=== PATIENT | male | born 1975 | race Caucasian/White ===

== ENCOUNTER 2018-05-20 17:29 | Emergency (ER) | payer MEDICAID, SELFPAY ==
[2018-05-20 17:35] VITALS: BP 167/99; PULSE 87; RESP 16; TEMP 36.4; O2SAT 98
--- NOTE | 2018-05-20 17:51 | ED.GENADUL_ITS ---
Discharge Plan Disposition Patient Disposition: HOME Condition: Stable Discharge Details Chief Complaint: RespSymp Clinical Impression: Bronchitis Primary Care Provider: Dio Ornelas ED Provider: Jarrod Coleman Home Meds and New Rx's Prescriptions: New prednisone 20 mg tablet 60 mg PO DAILY 4 Days Qty: 12 RF: 0 doxycycline hyclate 100 mg tablet 100 mg PO BID Qty: 14 RF: 0 Continued levalbuterol tartrate [Xopenex HFA] 15 GM HFA aerosol inhaler 2 puff Inhalation Q4H PRNRF: 0 oxycodone 10 MG tablet 10 mg PO QPM PRN (Reason: Nausea / Vomiting) Qty: 4 RF: 0 ondansetron 4 MG tablet,disintegrating 4 mg PO Q8H PRN PRNQty: 30 RF: 0 Lantus U-100 Insulin 100 UNITS/ML solution 15 unit SQ DAILY RF: 0 metformin [Glucophage] 1,000 MG tablet 1,000 mg PO BID RF: 0 lisinopril 20 mg Tablet 20 mg PO DAILY RF: 0 glipizide 10 mg Tablet 2.5 mg PO DAILY RF: 0 fenofibrate 120 mg Tablet 145 mg PO DAILY RF: 0 Discharge Instructions Instructions: Acute Bronchitis (ED) Additional Instructions: follow up with your primary care provider within a week. You should discuss havin testing for copd at that time as well if you feel you are becoming more ill or having worsening difficulty breathing return to the emergency department for reevaluation Medical Decision Making 43 yo male who states he has a hx of asthma, smoker, who comes in with chief complaint of productive cough without fevers for about a week. Denies recent travel, chest pain, leg swelling or calf pain. HE is speaking in full setnences on exam in no distress. He has apical wheezing bilaterally otherwise clear lungs. Given lack of focal lung exam findings and no fever and well appearance do not feel cxr indicated. I suspect he may be developing copd with his smoking hx and could be having a copd exacerbation, will tx with steroids and abx. He has no findings to suggest dvt and exam findings are consistent with copd/asthma so do not feel w/u for pe indicated and given lack of chest pain, jvd or leg edema do not feel w/u for acs or chf indicated. ADvised f/u with pcp and return precautions given Differential Diagnosis bronchitis, copd,, asthma, pna HPI General Mode of arrival: ambulatory . Date/Time Provider Initiated Documentation: 05/20/18 17:31 . Limitations to Documentation: no limitations . Information obtained by: patient . History of Present Illness 43 year old M presents to the emergency department with the chief complaint of cough, described as moderate, Patient reports no radiation. Patient started experiencing this week(s) (1) and it has been constant. No relieving factors improve symptom(s), No exacerbating factors reported . Patient notes other (nausea). Patient did receive the following treatments prior to arrival, none Related Data Home Medications Medication Instructions Recorded Confirmed levalbuterol tartrate [Xopenex HFA] 2 puff INHALATION Q4H PRN 04/22/16 05/20/18 ondansetron 4 mg PO Q8H PRN PRN #30 tabef 04/22/16 05/20/18 oxycodone 10 mg PO QPM PRN #4 tab 04/22/16 05/20/18 Lantus U-100 Insulin 15 unit SQ DAILY 05/12/16 05/20/18 metformin [Glucophage] 1,000 mg PO BID 05/12/16 05/20/18 doxycycline hyclate 100 mg PO BID #14 tab 05/20/18 fenofibrate 145 mg PO DAILY 05/20/18 05/20/18 glipizide 2.5 mg PO DAILY 05/20/18 05/20/18 lisinopril 20 mg PO DAILY 05/20/18 05/20/18 prednisone 60 mg PO DAILY 4 Days #12 tab 05/20/18 Previous Rx's Medication Instructions Recorded ondansetron 4 mg PO Q8H PRN PRN #30 tabef 04/22/16 oxycodone 10 mg PO QPM PRN #4 tab 04/22/16 doxycycline hyclate 100 mg PO BID #14 tab 05/20/18 prednisone 60 mg PO DAILY 4 Days #12 tab 05/20/18 Allergies Allergy/AdvReac Type Severity Reaction Status Date / Time acamprosate calcium Allergy Intermediate Unverified 05/20/18 17:38 [From Campral] buspirone HCl [From BuSpar] Allergy Intermediate Skin Rash Unverified 05/20/18 17:38 lorazepam [From Ativan] AdvReac Severe Agitation Unverified 05/20/18 17:38 doxycycline AdvReac Intermediate Nausea Unverified 05/20/18 17:38 duloxetine HCl AdvReac Unverified 05/20/18 17:38 [From Cymbalta] General Stated Complaint: RespSymp AHMET: 4 Review of Systems Review of Systems All systems reviewed & are unremarkable except as noted in HPI and below Constitutional Denies chills, Denies fever(s) and Denies weakness ENT Denies change in voice Cardiovascular Denies chest pain Gastrointestinal Denies abdominal pain, Denies nausea and Denies vomiting Genitourinary Denies dysuria Musculoskeletal Denies joint swelling Integumentary/Breasts Denies rash Neurologic Denies weakness PFS Social History Smoking/Tobacco Use Status: Current every day Tobacco Type: cigarettes Smoking cigarettes per day: 15 Alcohol Intake: former Drug use: Daily Substance use type: does not use Do you feel safe in your relationship?: Yes Exam Const General: no acute distress Orientation: alert HENMT Head: normal to inspection Ears: external ears normal General nose exam: external nose normal Mouth: moist mucous membranes Eyes General: appearance normal, both eyes and all related structures Neck Neck: normal visual inspection Resp Effort & Inspection: normal respiratory effort and able to speak in complete sentences Cardio Rate: regular rate Skin General skin exam: no rashes or lesions noted Neuro General: alert and oriented x3 Extrem General: normal to inspection Psych Mental Status: mental status grossly normal Course Vital Signs Temperature 36.4 C L 05/20/18 17:35 Pulse 87 05/20/18 17:35 Respiratory Rate 16 05/20/18 17:35 Blood Pressure 167/99 H 05/20/18 17:35 Pulse Oximetry 98 05/20/18 17:35 Temperature 36.4 C L 05/20/18 17:35 Temperature Source Skin 05/20/18 17:35 Pulse 87 05/20/18 17:35 Respiratory Rate 16 05/20/18 17:35 Respiratory Effort 05/20/18 17:35 Blood Pressure 167/99 H 05/20/18 17:35 Blood Pressure Position Sitting 05/20/18 17:35 Pulse Oximetry 98 05/20/18 17:35 Oxygen Delivery Method Room Air 05/20/18 17:35 Oxygen Flow Rate 0 05/20/18 17:35 Pain Level 4 05/20/18 17:35
[2018-05-20] MEDS: Doxycycline Hyclate 100 MG CAP PO (18:09)
[2018-05-20] MEDS: predniSONE 20 MG TAB 60 MG PO (18:09)
[2018-05-20] MEDS: Albuterol HFA 8 GM 60 PUFF INH IH (18:09)
[2018-05-20] MEDS: Inhaler, Assist Device 1 EACH MC (18:10)
== END 2018-05-20 18:05 | disposition home or self-care (01) ==
LOC: ER 18:21
PROVIDERS: Emergency Provider Emergency Medicine; PCP Family Medicine
DX: J40 Bronchitis, not specified as acute or chronic (principal)
CPT/HCPCS: 99283; J7512

== ENCOUNTER 2018-05-22 08:40 | Emergency (ER) | payer MEDICAID, SELFPAY ==
[2018-05-22] VITALS (12 sets, daily range): BP systolic 132–164; BP diastolic 85–101; PULSE 66–104; RESP 18; TEMP 36.3; O2SAT 91–99
--- NOTE | 2018-05-22 09:02 | ED.GENADUL_ITS ---
Discharge Plan Disposition Patient Disposition: HOME Condition: Stable Discharge Details Chief Complaint: Diabetes Clinical Impression: Hyperglycemia, Bronchitis, Noncompliance with medication regimen, Medication refill Primary Care Provider: Dio Ornelas ED Provider: Maria A Reyes Home Meds and New Rx's Prescriptions: New lisinopril 20 mg tablet 20 mg PO DAILY Qty: 30 RF: 0 lancets [Accu-Chek Multiclix Lancet] misc .ROUTE .MEDSUPPLY Qty: 50 RF: 0 Accu-Chek Compact Plus Test strip .ROUTE .MEDSUPPLY Qty: 51 RF: 0 Continued levalbuterol tartrate [Xopenex HFA] 15 GM HFA aerosol inhaler 2 puff Inhalation Q4H PRNRF: 0 metformin [Glucophage] 1,000 MG tablet 1,000 mg PO BID RF: 0 lisinopril 20 mg Tablet 20 mg PO DAILY RF: 0 glipizide 10 mg Tablet 2.5 mg PO DAILY RF: 0 fenofibrate 120 mg Tablet 145 mg PO DAILY RF: 0 prednisone 20 mg tablet 60 mg PO DAILY 4 Days Qty: 12 RF: 0 doxycycline hyclate 100 mg tablet 100 mg PO BID Qty: 14 RF: 0 buprenorphine-naloxone [Suboxone] 2-0.5 mg Film DAILY RF: 0 buprenorphine-naloxone [Suboxone] 12-3 mg Film 1 DAILY RF: 0 Discharge Instructions Instructions: Acute Bronchitis (ED), Diabetic Hyperglycemia (ED) Additional Instructions: Take your regular medications as directed and prescribed. Check your sugar regularly. Drink plenty of fluids and get plenty of rest. Take your steroids and doxycycline until finished. Follow-up with your appointment with your primary care doctor tomorrow. Return immediately to the emergency department any worsening or new concerning symptoms. Stand Alone Forms: Work Release Discharge Data Discharge Physician: Maria A Reyes Medical Decision Making 43-year-old male with a history of hypertension, hyperlipidemia, asthma, pancreatitis, diabetes, depression, GERD, obstructive sleep apnea and former alcohol and prescription opiate abuse who presents with fatigue and urinary frequency over the past week, and hyperglycemia over the past few days. He was diagnosed with bronchitis and has taken prednisone over the past 2 days. He has also missed a few doses of his glipizide. His glucose on arrival was 347. Normal ENT exam. He has diffuse rhonchi and minimal wheezing throughout exam. Abdomen soft and nontender. Discussed with patient that his symptoms can be likely due to him missing his glipizide in addition to the steroids. Will place an IV, bolus IV fluids, labs, EKG, chest x-ray and urinalysis, and a neb treatment. EKG notes a rate of 68, sinus and no acute ST findings. Labs reviewed and note a normal white blood cell count, electrolytes. Glucose 327, normal bicarb and anion gap. Troponin negative. Lipase negative. Urinalysis negative for infection. Chest x-ray unremarkable. Will continue IV fluids and give 5 units of regular insulin. Will observe and recheck a blood sugar. 1215-- recheck glucose 148. Patient is feeling much better and was requesting to go home. He is requesting a prescription for lisinopril, lancets and testing strips. He has an appointment with his primary care doctor tomorrow. He is instructed to increase his fluids, check his sugar regularly and take his diabetes medications as directed. He is instructed to finish his prednisone and doxycyline for his bronchitis. He has an albuterol inhaler at home. Patient is instructed to return immediately to the emergency department any worsening or new concerning symptoms. Medical Records Medical records reviewed: Yes I reviewed the patient's medical records. Imaging Data Radiologic Study: Radiologist's impression: PA AND LATERAL CHEST: The heart is normal in size. The lungs are clear. The mediastinal structures and pleura appear intact. CONCLUSION: Normal chest. Lab Data Lab results reviewed: Yes I reviewed the patient's lab results. Laboratory Tests Range/Units 05/22/18 05/22/18 05/22/18 09:00 09:00 09:00 WBC (4.4-10.8) k/cumm 9.40 RBC (4.50-6.00) m/cumm 4.92 Hgb (13.5-17.5) g/dL 14.8 Hct (40.0-50.0) % 41.8 MCV (80-95) fL 85.0 MCH (27.0-33.0) pg 30.1 MCHC (32.0-36.0) g/dL 35.4 RDW (11.8-14.1) % 12.5 Plt Count (130-400) x1000/uL 196 MPV (8.0-11.0) fL 11.1 H Immature Gran % 0.3 Neutrophils % 71.9 Lymphocytes % 19.9 Monocytes % 7.6 Eosinophils % 0.1 Basophils % 0.2 Absolute Neutrophils (1.2-6.7) k/cumm 6.76 H Absolute Lymphocytes (1.2-3.4) k/cumm 1.87 Absolute Monocytes (0.11-0.7) k/cumm 0.71 H Absolute Eosinophils (0.0-0.7) k/cumm 0.01 Absolute Basophils (0.0-0.2) k/cumm 0.02 Sodium (136-145) mmol/L 136 Potassium (3.5-5.1) mmol/L 3.6 Chloride (98-107) mmol/L 95 L Carbon Dioxide (21.0-32.0) mmol/L 30.1 Anion Gap (3-11) mmol/L 10.9 BUN (7-18) mg/dL 28 H Creatinine (0.70-1.30) mg/dL 1.36 H Estimated GFR/1.73 m2 (mL/min/1.73m2) 57.47 Glucose (70-100) mg/dL 327 H Calcium (8.5-10.1) mg/dL 9.8 Total Bilirubin (0.2-1.0) mg/dL 0.3 AST (15-37) U/L 15 ALT (12-78) U/L 47 Alkaline Phosphatase (46-116) U/L 104 Troponin I (0.00-0.06) ng/mL 0.02 Total Protein (6.4-8.2) g/dL 8.6 H Albumin (3.4-5.0) g/dL 4.4 Lipase (73-393) U/L 177 Urine Color (Yellow) Urine Clarity Urine pH (5-8) Ur Specific [place] (1.005-1.025) Urine Protein (Negative) mg/dL Urine Ketones (Negative) mg/dL Urine Blood (Negative) Urine Nitrite (Negative) Urine Bilirubin (Negative) Urine Urobilinogen (Up TO 0.2) EU/dL Ur Leukocyte Esterase (Negative) Urine RBC (0-2) Urine WBC (0-5) HPF Ur Epithelial Cells (Negative) HPF Urine Crystals (Negative) HPF Urine Bacteria (Negative) HPF Urine Casts (Negative) LPF Urine Mucus (Negative) Ur Culture Indicated? Urine Glucose (Negative) mg/dL Range/Units 05/22/18 10:14 WBC (4.4-10.8) k/cumm RBC (4.50-6.00) m/cumm Hgb (13.5-17.5) g/dL Hct (40.0-50.0) % MCV (80-95) fL MCH (27.0-33.0) pg MCHC (32.0-36.0) g/dL RDW (11.8-14.1) % Plt Count (130-400) x1000/uL MPV (8.0-11.0) fL Immature Gran % Neutrophils % Lymphocytes % Monocytes % Eosinophils % Basophils % Absolute Neutrophils (1.2-6.7) k/cumm Absolute Lymphocytes (1.2-3.4) k/cumm Absolute Monocytes (0.11-0.7) k/cumm Absolute Eosinophils (0.0-0.7) k/cumm Absolute Basophils (0.0-0.2) k/cumm Sodium (136-145) mmol/L Potassium (3.5-5.1) mmol/L Chloride (98-107) mmol/L Carbon Dioxide (21.0-32.0) mmol/L Anion Gap (3-11) mmol/L BUN (7-18) mg/dL Creatinine (0.70-1.30) mg/dL Estimated GFR/1.73 m2 (mL/min/1.73m2) Glucose (70-100) mg/dL Calcium (8.5-10.1) mg/dL Total Bilirubin (0.2-1.0) mg/dL AST (15-37) U/L ALT (12-78) U/L Alkaline Phosphatase (46-116) U/L Troponin I (0.00-0.06) ng/mL Total Protein (6.4-8.2) g/dL Albumin (3.4-5.0) g/dL Lipase (73-393) U/L Urine Color (Yellow) Yellow Urine Clarity Clear Urine pH (5-8) 6.5 Ur Specific [place] (1.005-1.025) 1.020 Urine Protein (Negative) mg/dL Trace H Urine Ketones (Negative) mg/dL Negative Urine Blood (Negative) Trace-intact H Urine Nitrite (Negative) Negative Urine Bilirubin (Negative) Negative Urine Urobilinogen (Up TO 0.2) EU/dL 0.2 Ur Leukocyte Esterase (Negative) Negative Urine RBC (0-2) 3-5 H Urine WBC (0-5) HPF 0-2 Ur Epithelial Cells (Negative) HPF Few Urine Crystals (Negative) HPF Negative Urine Bacteria (Negative) HPF Rare Urine Casts (Negative) LPF 0-2 hyaline Urine Mucus (Negative) Negative Ur Culture Indicated? No Urine Glucose (Negative) mg/dL >=1000 H ECG Data Attestation: I personally reviewed and interpreted this ECG (s) as follows: Interpretation: rate of 68, sinus, T wave inversion lead III, no acute ST elevation or depression. QTc 374, QRS 80. HPI General Mode of arrival: ambulatory . Date/Time Provider Initiated Documentation: 05/22/18 08:58 . Limitations to Documentation: no limitations . Information obtained by: patient . HPI Narrative: Patient is a 43-year-old male with a history of hypertension, hyperlipidemia, asthma, pancreatitis, diabetes, depression, GERD, obstructive sleep apnea and former alcohol abuse who presents with hyperglycemia. Patient states he had not been feeling well for the past 2 weeks with nausea, intermittent vomiting and diarrhea, which he thought was the flu. Patient states he then developed URI symptoms with cough, chest congestion, and intermittent shortness of breath. Patient was seen here 2 days ago and diagnosed with bronchitis and sent home with prednisone and doxycycline. He states he has taken 2 doses of his prednisone since then. He states he has been generally feeling fatigued with increase in urination and frequency over the past week. He checked his sugar twice over the past few days and it was in the 500s. Patient called his PCP this morning and she advised him to come to the emergency department. He does state that he has missed a few doses of his glipizide this week. He has been taking his metformin. He denies any fever, abdominal pain, chest pain, dysuria or hematuria. Related Data Home Medications Medication Instructions Recorded Confirmed levalbuterol tartrate [Xopenex HFA] 2 puff INHALATION Q4H PRN 04/22/16 05/20/18 metformin [Glucophage] 1,000 mg PO BID 05/12/16 05/20/18 buprenorphine-naloxone [Suboxone] 1 DAILY 05/20/18 buprenorphine-naloxone [Suboxone] DAILY 05/20/18 doxycycline hyclate 100 mg PO BID #14 tab 05/20/18 fenofibrate 145 mg PO DAILY 05/20/18 05/20/18 glipizide 2.5 mg PO DAILY 05/20/18 05/20/18 lisinopril 20 mg PO DAILY 05/20/18 05/20/18 prednisone 60 mg PO DAILY 4 Days #12 tab 05/20/18 blood sugar diagnostic, drum #51 each 05/22/18 [Accu-Chek Compact Plus Test] lancets [Accu-Chek Multiclix #50 each 05/22/18 Lancet] lisinopril 20 mg PO DAILY #30 tab 05/22/18 Previous Rx's Medication Instructions Recorded doxycycline hyclate 100 mg PO BID #14 tab 05/20/18 prednisone 60 mg PO DAILY 4 Days #12 tab 05/20/18 blood sugar diagnostic, drum #51 each 05/22/18 [Accu-Chek Compact Plus Test] lancets [Accu-Chek Multiclix #50 each 05/22/18 Lancet] lisinopril 20 mg PO DAILY #30 tab 05/22/18 Allergies Allergy/AdvReac Type Severity Reaction Status Date / Time acamprosate calcium Allergy Intermediate Unverified 05/20/18 17:38 [From Campral] buspirone HCl [From BuSpar] Allergy Intermediate Skin Rash Unverified 05/20/18 17:38 lorazepam [From Ativan] AdvReac Severe Agitation Unverified 05/20/18 17:38 doxycycline AdvReac Intermediate Nausea Unverified 05/20/18 17:38 duloxetine HCl AdvReac Unverified 05/20/18 17:38 [From Cymbalta] General Stated Complaint: Diabetes AHMET: 3 Review of Systems Review of Systems All systems reviewed & are unremarkable except as noted in HPI and below Constitutional Reports as per HPI, Denies chills and Denies fever(s) Eyes Denies blurry vision ENT Denies dizziness, Denies sore throat and Denies throat swelling Cardiovascular Reports chest pain and Reports dyspnea Respiratory Reports cough and Reports dyspnea Gastrointestinal Denies abdominal pain, Denies diarrhea, Reports nausea and Denies vomiting Genitourinary Denies hematuria and Denies dysuria Musculoskeletal Denies back pain and Denies numbness Integumentary/Breasts Denies lesions and Denies rash Neurologic Denies dizziness, Denies focal weakness and Denies numbness Allergic/Immunologic Denies throat swelling [facility] Medical History Hyperlipemia (Acute) Asthma (Chronic) Depression (Chronic) Diabetes (Chronic) GERD (gastroesophageal reflux disease) (Chronic) HTN (hypertension) (Chronic) Obstructive sleep apnea (Chronic) Pancreatitis (Chronic) Surgical History History of circumcision (Acute) History of ear surgery (Acute) Pancreatic pseudocyst (Acute) Social History Smoking/Tobacco Use Status: Current every day Tobacco Type: cigarettes Alcohol Intake: former Drug use: Never Substance use type: former substance user, opiates and painkillers Do you feel safe at home: Yes Do you feel safe in your relationship?: Yes Exam Const General: cooperative and healthy appearing Orientation: alert and awake HENMT Head: normal to inspection Ears: hearing grossly normal bilaterally, external ears normal and TM's normal bilaterally General nose exam: external nose normal Face and sinus: normal facial exam Mouth: oral mucosae normal Teeth and gingiva: dentition normal Throat: posterior oropharynx normal Eyes General: appearance normal, both eyes and all related structures Eyelids: eyelids normal EOM: EOM intact bilaterally Neck Neck: normal visual inspection Lymphatic: no lymphadenopathy noted Chest Chest: normal inspection of the chest Resp Effort & Inspection: normal respiratory effort and able to speak in complete sentences Auscultation: rhonchi and wheezes Cardio Rate: regular rate Rhythm: regular rhythm GI Inspection: normal to inspection Palpation: soft, not firm, no guarding, no hepatosplenomegaly, no masses and nontender Auscultation: normal bowel sounds Skin General skin exam: no rashes or lesions noted Neuro General: alert and awake Cognition: normal cognition Speech: speech normal Gait: normal gait Motor: muscle tone normal throughout Sensory Exam: no sensory deficits noted Extrem General: normal to inspection, full ROM, normal capillary refill and no edema Psych Appearance: grossly normal Mental Status: mental status grossly normal Speech and Movement: speech and movement normal Affect: normal affect Thought Process: normal Course Vital Signs Temperature 97.3 F L 05/22/18 08:42 Pulse 104 H 03/26/19 08:42 Respiratory Rate 18 05/22/18 08:42 Blood Pressure 164/101 H 05/22/18 08:42 Pulse Oximetry 99 05/22/18 08:42 Temperature 97.3 F L 05/22/18 08:42 Temperature Source Temporal Artery Scan 05/22/18 08:42 Pulse 104 H 05/22/18 08:42 Respiratory Rate 18 05/22/18 08:42 Respiratory Effort Non-Labored 05/22/18 08:46 Blood Pressure 164/101 H 05/22/18 08:42 Pulse Oximetry 99 05/22/18 08:42 Oxygen Delivery Method Room Air 05/22/18 08:42 Oxygen Flow Rate 0 05/22/18 08:42 Pain Level 0 05/22/18 08:42 Comment 05/22/18 08:42
[2018-05-22 09:12] LABS: Abs Immature Grans 0.03 k/cumm (0.0-0.09); Absolute Basophil Count 0.02 k/cumm (0.0-0.2); Absolute Eosinophil Count 0.01 k/cumm (0.0-0.7); Absolute Lymphocyte Count 1.87 k/cumm (1.2-3.4); Absolute Monocyte Count 0.71 k/cumm (0.11-0.7); Absolute Neutrophil Count 6.76 k/cumm (1.2-6.7); Basophils % 0.2; Eosinophils % 0.1; HCT 41.8 % (40.0-50.0); HGB 14.8 g/dL (13.5-17.5); Immature Grans % 0.3; Lymphocytes % 19.9; Mean Corp. HGB Concentration 35.4 g/dL (32.0-36.0); Mean Corpuscular Hemoglobin 30.1 pg (27.0-33.0); Mean Platelet Volume 11.1 fL (8.0-11.0); Monocytes % 7.6; Neutrophils % 71.9; Platelet Count 196 x1000/uL (130-400); RBC 4.92 m/cumm (4.50-6.00); RBC Distribution Width 12.5 % (11.8-14.1)
[2018-05-22 09:25] LABS: ALT 47 U/L (12-78); AST 15 U/L (15-37); Albumin 4.4 g/dL (3.4-5.0); Alkaline Phosphatase 104 U/L (46-116); Anion Gap 10.9 mmol/L (3-11); BUN 28 mg/dL (7-18); Bilirubin, Total 0.3 mg/dL (0.2-1.0); CO2 30.1 mmol/L (21.0-32.0); CREATININE 1.36 mg/dL (0.70-1.30); Calcium 9.8 mg/dL (8.5-10.1); Chloride 95 mmol/L (98-107); Estimated GFR 57.47 (mL/min/1.73m2); Glucose 327 mg/dL (70-100); Potassium 3.6 mmol/L (3.5-5.1); Sodium 136 mmol/L (136-145); Total Protein 8.6 g/dL (6.4-8.2)
--- NOTE | 2018-05-22 09:34 | DI.RAD_ITS ---
SYMPTOMS/DIAGNOSIS: CHEST TIGHTNESS, COUGH, SOB, ? ACUTE DISEASE PA AND LATERAL CHEST: The heart is normal in size. The lungs are clear. The mediastinal structures and pleura appear intact. CONCLUSION: Normal chest.
[2018-05-22] MEDS: Normal Saline 1,000 ML 1000 ML IV (09:41)
[2018-05-22] MEDS: Albuterol/Ipratropium 3 ML UPD VIAL UPD (10:09)
--- NOTE | 2018-05-22 10:14 | NUR.NOTE ---
Nursing Note: urine sent. neb tx given. will continue to monitor.
[2018-05-22 10:18] LABS: Bilirubin Negative (Negative); Blood Trace-intact (Negative); Clarity Clear; Glucose >=1000 mg/dL (Negative); Ketones Negative (Negative); Leukocyte Esterase Negative (Negative); Nitrite Negative (Negative); Urobilinogen 0.2 EU/dL (Up TO 0.2); pH 6.5 (5-8)
[2018-05-22] MEDS: Insulin REGULAR-Human 100 UNITS/ML UNIT IV (10:27)
[2018-05-22 10:33] LABS: Bacteria Rare HPF (Negative); C & S Indicated? No; Casts 0-2 Hyaline LPF (Negative); Crystals Negative HPF (Negative); Epithelial Cells Few HPF (Negative); Mucus Negative (Negative); WBC 0-2 HPF (0-5)
[2018-05-22 11:00] LABS: Lipase 177 U/L (73-393); Troponin I 0.02 ng/mL (0.00-0.06)
== END 2018-05-22 12:29 | disposition home or self-care (01) ==
PROVIDERS: Emergency Provider Physician Assistant; PCP Family Medicine
DX: E11.65 Type 2 diabetes mellitus with hyperglycemia (principal); J20.9 Acute bronchitis, unspecified; Z91.14 Patient's other noncompliance with medication regimen; I10 Essential (primary) hypertension; Z79.84 Long term (current) use of oral hypoglycemic drugs; E11.9 Type 2 diabetes mellitus without complications
CPT/HCPCS: 36416; 80053; 82962; 83690; 93005; 96361; 96374; 99285; 71046; 81003; 81015; 84484; 85025; 93010; J7620

== ENCOUNTER 2018-11-27 00:41 | Outpatient (CLI) | payer OTHER, SELFPAY ==
--- NOTE | 2018-11-27 13:48 | DI.MRI_ITS ---
EXAM: MR UPPER JOINT RT WO CLINICAL HISTORY: R shoulder pain s/p injury. ?SLAP, biceps tear. TECHNIQUE: Multiplanar multisequence MRI was performed. COMPARISON: None. FINDINGS: Bones: There is no fracture or contusion pattern. There are hypertrophic changes seen at the acromioclavicul ar joint. No subacromial, subcoracoid or glenohumeral joint effusion is present. Rotator Cuff: The supra and infraspinatus are intact. The subscapularis and teres minor are normal. Labrum and biceps anchor: The biceps tendon is normally located. The anchor is well maintained. There is hyperintense signal s een in the superior labrum. It does not appear to extend to the biceps tendon. The finding is consi stent with a SLAP type 2 tear. IMPRESSION: Findings consistent with a SLAP type 2 labral tear.
== END 2018-11-27 01:01 ==
PROVIDERS: PCP Family Medicine; Visit Provider Student in an Organized Health Care Education/Training Program
DX: M25.511 Pain in right shoulder (principal); S43.431A Superior glenoid labrum lesion of right shoulder, initial encounter
CPT/HCPCS: 73221

== ENCOUNTER 2018-12-25 09:53 | Day surgery (SDC) | payer OTHER, SELFPAY ==
[2018-12-25] VITALS (7 sets, daily range): BP systolic 110–144; BP diastolic 64–96; PULSE 62–72; RESP 12–18; TEMP 36.4–36.6; O2SAT 95–99
[2018-12-25] MEDS: Lactated Ringers 1,000 ML 80 ML IV (10:55)
[2018-12-25] MEDS: Bupivacaine LIPOSOME/PF 133 MG/10 ML VIAL IJ (11:12)
[2018-12-25] MEDS: Bupivacaine 0.5% Pres-Free 30 ML VIAL (11:12)
[2018-12-25] MEDS: ceFAZolin 2 GM/50 ML BAG IVPB (11:39)
--- NOTE | 2018-12-25 11:43 | W.PM.DSUDISC ---
Discharge Plan Disposition Patient Disposition: HOME Condition: Good Discharge Details Reason For Visit: R distal clavicle excision, R biceps tenodesis Attending Provider: Nikita Gibbs Primary Care Provider: Dio Ornelas [place] Meds and New Rx's Prescriptions: New acetaminophen 500 mg tablet 1,000 mg PO Q8H PRN (Reason: pain) Qty: 60 RF: 3 ibuprofen 600 mg tablet 600 mg PO TID PRNQty: 60 RF: 3 oxycodone 10 mg tablet 10 mg PO Q6H MDD 40mg PRN (Reason: pain) Qty: 12 RF: 0 Continued Farxiga 5 mg tablet 5 mg PO DAILY RF: 0 diclofenac epolamine 1.3 % patch 12 hour 1 patch TD Q12H Qty: 15 RF: 0 levalbuterol tartrate [Xopenex HFA] 15 GM HFA aerosol inhaler 2 puff Inhalation Q4H PRNRF: 0 lisinopril 20 mg tablet 20 mg PO DAILY Qty: 30 RF: 0 (DME) lancets [Accu-Chek Multiclix Lancet] misc See Dose Instructions .ROUTE .MEDSUPPLY Qty: 50 RF: 0 (DME) Accu-Chek Compact Plus Test strip See Dose Instructions .ROUTE .MEDSUPPLY Qty: 51 RF: 0 Lantus Solostar U-100 Insulin 100 unit/mL (3 mL) Insulin Pen 33 unit SUBCUT DAILY RF: 0 metformin [Glucophage] 1,000 MG tablet 1,000 mg PO BID RF: 0 fenofibrate 120 mg Tablet 145 mg PO DAILY RF: 0 buprenorphine-naloxone [Suboxone] 2-0.5 mg Film sublingual DAILY RF: 0 buprenorphine-naloxone [Suboxone] 12-3 mg Film 1 film sublingual DAILY RF: 0 Discharge Instructions Stand Alone Forms: Bernie Aquino w/BT Referrals: Nikita Gibbs MD [ [facility] STAFF PHYSICIAN] - Equipment/Supplies: Sling Activity:: Light activity as tolerated Remove Dressings/Wound Care:: 72 hours Shower/Bathe:: 72 hours Diet:: As Tolerated Discharge Orders Discharge Orders: Discharge Order (Routine); Ordered 12/25/18 Ordered By: Nikita Gibbs DS: Diagnosis Discharge Diagnosis (1) Superior labrum [id number] (SLAP) tear of right shoulder: Status: Acute (2) Sprain of right acromioclavicular joint: Status: Acute
[2018-12-25] MEDS: Bupivacaine 0.25% Pres-Free 30 ML VIAL (12:40)
[2018-12-25] MEDS: Ketorolac 15 MG/ML VIAL IVP (13:32)
[2018-12-25] MEDS: oxyCODONE 5 MG TAB PO (14:25)
--- NOTE | 2018-12-26 06:00 | ROE_ITS ---
Date of service: 12/25/18 Time of Service: 13:00 Operative Note Operative Note DATE OF PROCEDURE: 12/25/18 PRE-OP DIAGNOSIS: Right AC arthrosis, right SLAP tear POST-OP DIAGNOSIS: same PROCEDURE: - Mini-Open Distal Clavicle Excision - Debridement of anterior and superior labrum - Sub-pectoral biceps tenodesis SURGEON: Nikita Gibbs SENIOR ASSISTANT MANAGER: Daniel Gray ANESTHESIA: GETA and regional (Interscalene) ESTIMATED BLOOD LOSS: 0 PATHOLOGY: none sent COMPLICATIONS: None Patient was transported to: PACU Patient's condition: stable Indications: Vinay in clinic for a painful shoulder. Pathology was confirmed based on MRI and exam findings. Nonoperative measures were exhausted but disability and pain persisted. I discussed shoulder arthroscopy and procedures. I reviewed the risks of the procedures to include, but not limited to, bleeding, infection, pain, stiffness, damage to nerves or vessels, recurrence, hardware failure, blood clot. Despite these risks, the patient elected to proceed. Findings: There were signs of arthrosis of the distal clavicle; a 1cm wedge was resected A diagnostic arthroscopy was performed with the following findings: Articular Side - Glenohumeral Joint: One area of focal cartilage damage with a small flap, approximate 2 mm - Labrum: Type II SLAP tear with partial biceps tearing at the anchor - Cuff: Intact cuff - Biceps: Fraying at the anchor Procedure Description: Vinay was greeted in the preoperative holding area where the correct side was identified and marked. The consent was reviewed with the patient and signed. The history and physical was updated. All questions were answered. Vinay was taken back to the PACU for administration of an intrascalene nerve block. He was then taken to the operating room. The patient was placed into the supine position on the operating room table. A general anesthetic was administered. He was then positioned in the beach chair position. All bony prominences were well padded. The head was placed in a foam insulation board head saw operator in a neutral position. Prophylactic antibiotics in the form of cefazolin were administered. The right arm/shoulder was then prepped with Chloraprep and draped in a standard fashion with stockinette and shoulder drape. A timeout to confirm correct identity, side and site, procedure, allergies, anesthesia, and medical concerns was performed. The arm was placed into a pneumatic davey, SPIDER2. The distal clavicle was approached through a 2 centimeter incision within Kellen's lines. This was made overlying the AC joint. The skin was incised sharply. The deeper tissues dissected with electrocautery. The clavipectoral fascia was identified and incised longitudinally off of the distal clavicle and onto the acromion. This was reflected subperiosteally to expose the distal clavicle and the AC joint. With adequate exposure a 1 cm bony resection was made using an oscillating saw. This is angled posteriorly to avoid any posterior impingement. Once it was fully resected, it was inspected to make sure it is of adequate width. A rasp was used to smooth the bony edges inferiorly and posteriorly primarily. A small amount of bone wax was placed on the end of the distal clavicle. The wound was thoroughly irrigated. There is no active bleeding. The clavipectoral fascia was then closed with a 0 Vicryl in a watertight fashion. The subcutaneous tissues were then reapproximated with a 2-0 Vicryl. The shoulder arthroscopy was then performed. The glenohumeral joint was injected with 20 cc of normal saline with good flow back. A standard posterior portal was made and the joint was entered atraumatically with a blunt arthroscope. Once inside we had good visualization of the structures of the glenohumeral joint. An anterior portal was established with spinal needle localization. A 6.5 mm cannula was inserted. A probe was then used to perform a diagnostic arthroscopy. There is noted to be a small area of focal cartilage damage of the glenoid, measuring about 2 mm with a small flap. The labrum was was detached superiorly and frayed anteriorly. The anchor was involved. There were no loose bodies in the inferior pouch. The superior rotator cuff was attached to the tuberosity. The biceps tendon had some partial tearing and fraying at the level of the anchor. The subscapularis was intact. Using electrocautery performed a biceps tenotomy for later tenodesis. I used a shaver to debride the labrum anteriorly and superiorly from 11-3 o'clock. This allowed me to contour the labrum back down. I used the shaver to also roughen up the superior glenoid for possible healing of the labrum down onto the glenoid. I use electrocautery for any contouring. No rotator cuff debridement was needed. The biceps tenodesis was then performed. With the arm and some slight external rotation abduction pectoralis major tendon was identified. A 2 cm incision was made overlying the insertion to the humerus. Sharp dissection was carried onto the skin. Blunt dissection was carried down to the fascia the biceps musculature. This was entered with a tenotomy scissors. The biceps groove was palpable and the biceps tendon was palpable. It was withdrawn from the wound using Allis clamp and finger dissection. Once the biceps tendon was out of the arm the biceps groove was prepared using a rasp. A Mitek Lupine anchor was inserted into the biceps groove at the level of the pectoralis major insertion. This was tested to make sure had excellent fixation into the bone. Using a free needle I then placed a locking Krak?w stitch and each side of the biceps tendon using one limb from each suture at the level of the muscular tendinous junction and moving proximally. Excess tendon was then cut. Using the free suture limb I then shuttled the tendon down to the prepared surface of the humerus. It laid flat against the humerus. It was at the level of the pectoralis major tendon. The suture limbs were then tied. The wound was irrigated. The subcutaneous tissue was reapproximated with a 2-0 Vicryl followed by 4-0 Monocryl. The portal sites were closed with 3-0 Monocryl. The wounds were dressed with Steri-Strips, 4 x 4's, ABDs, Medipore tape. A sling was applied. The patient tolerated the procedure well and was returned to the PACU in a stable condition suffering no known complication.
== END 2018-12-25 15:45 | disposition home or self-care (01) ==
PROVIDERS: PCP Family Medicine; Visit Provider Student in an Organized Health Care Education/Training Program
PROC: (CPT 23120; principal; 2018-12-25 12:00)
PROC: (CPT 23430; 2018-12-25 12:00)
DX: S43.431A Superior glenoid labrum lesion of right shoulder, initial encounter (principal); M19.011 Primary osteoarthritis, right shoulder; M75.21 Bicipital tendinitis, right shoulder; X58.XXXA Exposure to other specified factors, initial encounter; G89.18 Other acute postprocedural pain; K21.9 Gastro-esophageal reflux disease without esophagitis; E11.9 Type 2 diabetes mellitus without complications; I10 Essential (primary) hypertension; G47.33 Obstructive sleep apnea (adult) (pediatric); Y99.0 Civilian activity done for income or pay
CPT/HCPCS: 23430; 23120; 29822; J0690; J1100; J1885; J2405; L3670

== ENCOUNTER 2019-01-17 13:42 | Emergency (ER) | payer OTHER, MEDICAID, SELFPAY ==
[2019-01-17 13:49] VITALS: BP 134/88; PULSE 96; RESP 16; TEMP 36.4; O2SAT 95
--- NOTE | 2019-01-17 13:58 | DI.CT_ITS ---
EXAM: CT RENAL COLIC WO CLINICAL HISTORY: right flank pain TECHNIQUE: Imaging Protocol: Axial computed tomography images with coronal and sagittal reformatted images were created and reviewed. CONTRAST MATERIAL: Intravenous: Omnipaque 350 Contrast volume:0 mL contrast route:IV - Oral: No COMPARISON: ABD PELVIS WITH CONTRAST from 05/12/2016 FINDINGS: ABDOMEN: Lung Bases: Normal where visualized. Liver: There is moderate diffuse fatty infiltration of the liver. No measurable mass. Gallbladder and biliary tract: Cholelithiasis. No biliary ductal dilatation. Pancreas: Normal density, no abnormal calcifications or inflammatory process. Spleen: Normal. Kidneys: Normal size, contour and axis. No radiodense stones or obstructive uropathy. No masses seen. Adrenal glands: No masses seen. Abdominal Aorta: Abdominal portion non-dilated. PELVIS: Bladder: Symmetric distention, no gross wall thickening. Bowel: There are scattered diverticula seen within colon with no evidence of diverticulitis or enhanc ing abscess. The appendix is normal in size without evidence of adjacent mesenteric fat stranding or adjacent fluid collection. Peritoneal cavity: No ascites, collection or mesenteric inflammatory response. Bones: Within normal limits. IMPRESSION: 1. No evidence of nephrolithiasis or obstructive uropathy. 2. Cholelithiasis. No evidence of biliary ductal dilatation. 3. Hepatic steatosis. 4. Colonic diverticulosis but no evidence of acute diverticulitis. 5. Normal retrocecal appendix. The findings were discussed with the Emergency Department on the date of the examination. DATA REPOSITORY: All CT scans at this facility are submitted to the National Radiology Data Registry (NRDR) Dose Index Registry (DIR) with the [employer] ([employer]). RADIATION OPTIMIZATION: All CT scans at this facility use at least one of these dose optimization te chniques: automated exposure control; mA and/or kV adjustment per patient size (includes targeted exa ms where dose is matched to clinical indication); or iterative reconstruction.
--- NOTE | 2019-01-17 14:05 | W.ED.GENAD ---
Discharge Plan Disposition Patient Disposition: HOME Condition: Stable Discharge Details Chief Complaint: Urinary Clinical Impression: Urinary tract infection Primary Care Provider: Dio Ornelas ED Provider: Jarrod Coleman Home Meds and New Rx's Prescriptions: New levofloxacin 750 mg tablet 750 mg PO DAILY Qty: 7 RF: 0 Continued Farxiga 5 mg tablet 5 mg PO DAILY RF: 0 diclofenac epolamine 1.3 % patch 12 hour 1 patch TD Q12H Qty: 15 RF: 0 levalbuterol tartrate [Xopenex HFA] 15 GM HFA aerosol inhaler 2 puff Inhalation Q4H PRNRF: 0 lisinopril 20 mg tablet 20 mg PO DAILY Qty: 30 RF: 0 (DME) lancets [Accu-Chek Multiclix Lancet] misc See Dose Instructions .ROUTE .MEDSUPPLY Qty: 50 RF: 0 (DME) Accu-Chek Compact Plus Test strip See Dose Instructions .ROUTE .MEDSUPPLY Qty: 51 RF: 0 Lantus Solostar U-100 Insulin 100 unit/mL (3 mL) Insulin Pen 33 unit SUBCUT DAILY RF: 0 acetaminophen 500 mg tablet 1,000 mg PO Q8H PRN (Reason: pain) Qty: 60 RF: 3 ibuprofen 600 mg tablet 600 mg PO TID PRNQty: 60 RF: 3 oxycodone 10 mg tablet 10 mg PO Q6H MDD 40mg PRN (Reason: pain) Qty: 12 RF: 0 metformin [Glucophage] 1,000 MG tablet 1,000 mg PO BID RF: 0 fenofibrate 120 mg Tablet 145 mg PO DAILY RF: 0 buprenorphine-naloxone [Suboxone] 2-0.5 mg Film sublingual DAILY RF: 0 buprenorphine-naloxone [Suboxone] 12-3 mg Film 1 film sublingual DAILY RF: 0 Discharge Instructions Instructions: Urinary Tract Infection in Men (ED) Additional Instructions: follow up with your primary care provider within 1 week if you have high fevers, severe worsening pain or feel more ill return to the emergency department Medical Decision Making 43 yo male with hx of T2DM, gerd, depression, htn, comes in with burning sensatino when he urinates since last night and some right lower back pain. Denies fevers, states last night his stomach ached but has no abd pain now. Denies vomit, denies std and has no concern for this and denies any discharge. no testicle pain or swelling. Has pain in right lower back with no saddle anesthesia on exam and normal reflexes. Will obtain ua to eval for uti vs prostatitis and also obtian CT to eval for kidney stone. No findings on hx or exam to suggest process such as sea or cauda equina labs show mild elevation of his lfts that he has had in the past and lipase. Has no upper abdominal pain on exam. CT shows no acute findings. UA concerning for uti suspect prostatitis. Will start abx for 7 days and advised f/u with pcp in a week who should be able to continue abx if indicated. Return precautions given Differential Diagnosis Differential Diagnosis: prostatitis, uti, kidney stone Medical Records Medical records reviewed: Yes I reviewed the patient's medical records. Imaging Data Radiologic Study: Attestation: I personally reviewed and interpreted this imaging study as follows: Imaging: CT Scan Radiologist's impression: per Dr. Merlos has diverticulosis with diverticulitis, no kidney stone, cholelithiasis without evidence ofcholecystitis Lab Data Lab results reviewed: Yes I reviewed the patient's lab results. HPI General Mode of arrival: ambulatory. Date/Time Provider Initiated Documentation: 01/17/19 13:43. Limitations to Documentation: no limitations. Information obtained by: patient. History of Present Illness 43 year old M presents to the emergency department with the chief complaint of dysuria, and it has been intermittent. No relieving factors improve symptom(s), No exacerbating factors reported . Patient did receive the following treatments prior to arrival, none Related Data Home Medications Medication Instructions Recorded Confirmed levalbuterol tartrate [Xopenex HFA] 2 puff INHALATION Q4H PRN 04/22/16 01/17/19 metformin [Glucophage] 1,000 mg PO BID 05/12/16 01/17/19 buprenorphine-naloxone [Suboxone] 1 film SUBLINGUAL DAILY 05/20/18 01/17/19 buprenorphine-naloxone [Suboxone] SUBLINGUAL DAILY 05/20/18 11/30/18 fenofibrate 145 mg PO DAILY 05/20/18 01/17/19 Accu-Chek Compact Plus Test #51 each 05/22/18 11/30/18 lancets [Accu-Chek Multiclix #50 each 05/22/18 11/30/18 Lancet] lisinopril 20 mg PO DAILY #30 tab 05/22/18 01/17/19 diclofenac epolamine 1.3 % 1 patch TD Q12H #15 each 10/01/18 01/17/19 transdermal 12 hour patch dapagliflozin 5 mg tablet 5 mg PO DAILY 11/08/18 01/17/19 Lantus Solostar U-100 Insulin 33 unit SUBCUT DAILY 12/21/18 01/17/19 acetaminophen 1,000 mg PO Q8H PRN #60 tab 12/25/18 01/17/19 ibuprofen 600 mg PO TID PRN #60 tab 12/25/18 01/17/19 oxycodone 10 mg PO Q6H PRN #12 tab MDD 40mg 12/25/18 01/17/19 levofloxacin 750 mg PO DAILY #7 tab 01/17/19 Previous Rx's Medication Instructions Recorded Accu-Chek Compact Plus Test #51 each 05/22/18 lancets [Accu-Chek Multiclix #50 each 05/22/18 Lancet] lisinopril 20 mg PO DAILY #30 tab 05/22/18 diclofenac epolamine 1.3 % 1 patch TD Q12H #15 each 10/01/18 transdermal 12 hour patch acetaminophen 1,000 mg PO Q8H PRN #60 tab 12/25/18 ibuprofen 600 mg PO TID PRN #60 tab 12/25/18 oxycodone 10 mg PO Q6H PRN #12 tab MDD 40mg 12/25/18 levofloxacin 750 mg PO DAILY #7 tab 01/17/19 Allergies Allergy/AdvReac Type Severity Reaction Status Date / Time acamprosate calcium Allergy Intermediate Verified 01/17/19 14:02 [From Campral] buspirone HCl [From BuSpar] Allergy Intermediate Skin Rash Verified 01/17/19 14:02 lorazepam [From Ativan] AdvReac Severe Agitation Verified 01/17/19 14:02 doxycycline AdvReac Intermediate Nausea Verified 01/17/19 14:02 duloxetine HCl AdvReac Verified 01/17/19 14:02 [From Cymbalta] General Stated Complaint: Urinary AHMET: 3 Review of Systems All systems reviewed & are unremarkable except as noted in HPI and below Constitutional Constitutional: Denies chills, Denies fever(s) and Denies weakness ENT Ears, Nose, Mouth, and Throat: Denies change in voice Cardiovascular Cardiovascular: Denies chest pain and Denies dyspnea Respiratory Respiratory: Denies dyspnea Gastrointestinal Gastrointestinal: Denies vomiting Neurologic Neurologic: Denies weakness Psychiatric Psychiatric: Denies depression [facility] Social History Smoking/Tobacco Use Status: Current every day Tobacco Type: cigarettes Counseling given: provider counseling Alcohol Intake: former Drug use: Current Sobriety Substance use type: former substance user, opiates and painkillers Details: attends [employer] Household members: spouse Seatbelt use: always Do you feel safe at home: Yes Do you feel safe in your relationship?: Yes Exam Const General: no acute distress Orientation: alert HENMT Head: normal to inspection Ears: external ears normal General nose exam: external nose normal Mouth: moist mucous membranes Eyes General: appearance normal, both eyes and all related structures Neck Neck: normal visual inspection Resp Effort & Inspection: normal respiratory effort and able to speak in complete sentences Cardio Rate: regular rate GI Inspection: normal to inspection Palpation: soft Back/Spine/Pelvis Back: no CVA tenderness Skin General skin exam: no rashes or lesions noted Neuro General: alert and oriented x3 Extrem General: normal to inspection Psych Mental Status: mental status grossly normal Course Vital Signs Vital signs: Vital Signs Temperature 36.4 C L 01/17/19 13:49 Pulse 96 H 01/17/19 13:49 Respiratory Rate 16 01/17/19 13:49 Blood Pressure 134/88 01/17/19 13:49 Pulse Oximetry 95 01/17/19 13:49 Temperature 36.4 C L 01/17/19 13:49 Temperature Source Skin 01/17/19 13:49 Pulse 96 H 01/17/19 13:49 Respiratory Rate 16 01/17/19 13:49 Respiratory Effort Non-Labored 01/17/19 13:49 Blood Pressure 134/88 01/17/19 13:49 Blood Pressure Position Sitting 01/17/19 13:49 Pulse Oximetry 95 01/17/19 13:49 Oxygen Delivery Method Room Air 01/17/19 13:49 Oxygen Flow Rate 0 01/17/19 13:49 Pain Level 8 01/17/19 13:56 Lab/Test Results Lab/Test Results: 01/17/19 14:01 Urine - Clean Catch Urine Culture - Pending
[2019-01-17 14:13] LABS: Abs Immature Grans 0.03 k/cumm (0.0-0.09); Absolute Basophil Count 0.03 k/cumm (0.0-0.2); Absolute Eosinophil Count 0.25 k/cumm (0.0-0.7); Absolute Lymphocyte Count 1.07 k/cumm (1.2-3.4); Absolute Monocyte Count 0.72 k/cumm (0.11-0.7); Absolute Neutrophil Count 7.17 k/cumm (1.2-6.7); Basophils % 0.3; Eosinophils % 2.7; HCT 44.4 % (40.0-50.0); HGB 15.5 g/dL (13.5-17.5); Immature Grans % 0.3; Lymphocytes % 11.5; Mean Corp. HGB Concentration 34.9 g/dL (32.0-36.0); Mean Corpuscular Hemoglobin 29.2 pg (27.0-33.0); Mean Corpuscular Volume 83.6 fL (80-95); Mean Platelet Volume 10.5 fL (8.0-11.0); Monocytes % 7.8; Neutrophils % 77.4; Platelet Count 226 x1000/uL (130-400); RBC 5.31 m/cumm (4.50-6.00); RBC Distribution Width 12.7 % (11.8-14.1); White Blood Cell Count 9.27 k/cumm (4.4-10.8)
[2019-01-17 14:17] LABS: Bilirubin Negative (Negative); Blood Large (Negative); Clarity Cloudy (Clear); Glucose 500 mg/dL (Negative); Ketones Negative (Negative); Nitrite Positive (Negative); Specific Gravity >= 1.030 (1.005-1.025); pH 5.5 (5-8)
[2019-01-17 14:20] LABS: Bacteria Many HPF (Negative); C & S Indicated? Yes; Casts Negative LPF (Negative); Crystals Negative HPF (Negative); Epithelial Cells Few HPF (Negative); Leukocyte Esterase Negative (Negative); Mucus Negative (Negative); RBC >50 HPF (0-2); WBC >50 HPF (0-5)
[2019-01-17 14:31] LABS: ALT 108 U/L (16-63); AST 90 U/L (15-37); Albumin 4.3 g/dL (3.4-5.0); Alkaline Phosphatase 74 U/L (46-116); BUN 18 mg/dL (7-18); CREATININE 1.11 mg/dL (0.70-1.30); Calcium 9.5 mg/dL (8.5-10.1); Chloride 99 mmol/L (98-107); Glucose 221 mg/dL (74-106); Lipase 555 U/L (73-393); Magnesium 1.8 mg/dL (1.8-2.4); Potassium 4.3 mmol/L (3.5-5.1); Sodium 135 mmol/L (136-145); Total Protein 8.3 g/dL (6.4-8.2)
--- NOTE | 2019-01-17 16:40 | NUR.NOTE ---
Nursing Note: Referral faxed to PCP for follow up. Corinne Hicks.
== END 2019-01-17 14:59 | disposition home or self-care (01) ==
PROVIDERS: Emergency Provider Emergency Medicine; PCP Family Medicine
DX: N39.0 Urinary tract infection, site not specified (principal); B96.20 Unspecified Escherichia coli [E. coli] as the cause of diseases classified elsewhere; M54.5 Low back pain; K57.32 Diverticulitis of large intestine without perforation or abscess without bleeding; E11.9 Type 2 diabetes mellitus without complications; Z79.4 Long term (current) use of insulin; I10 Essential (primary) hypertension
CPT/HCPCS: 36415; 80053; 83690; 87077; 99284; 74176; 81003; 81015; 83735; 85025; 87086; 87186

== ENCOUNTER 2019-05-29 10:42 | Outpatient (CLI) | payer OTHER, SELFPAY ==
[2019-06-01 09:49] LABS: SARS-CoV-2 RNA Undetected (Undetected); SARS-CoV-2 Specimen Source Nasopharynx
== END 2019-05-29 11:02 ==
PROVIDERS: PCP Family Medicine; Visit Provider Family Medicine
DX: R05 Cough (principal)
CPT/HCPCS: U0003

== ENCOUNTER 2019-08-28 09:24 | Emergency (ER) | payer OTHER, SELFPAY ==
[2019-08-28 09:28] VITALS: BP 149/87; PULSE 67; RESP 16; TEMP 36.9; O2SAT 98
--- NOTE | 2019-08-28 09:36 | ED.GENADUL_ITS ---
Discharge Plan Disposition Patient Disposition: HOME Condition: Stable Discharge Details Chief Complaint: Orthopedic Clinical Impression: Foot fracture, left Primary Care Provider: Dio Ornelas ED Provider: Maria A Reyes Home Meds and New Rx's Prescriptions: Continued glipizide 5 mg tablet 5 mg PO DAILY RF: 0 levalbuterol tartrate [Xopenex HFA] 15 GM HFA aerosol inhaler 2 puff Inhalation Q4H PRNRF: 0 lisinopril 20 mg tablet 20 mg PO DAILY Qty: 30 RF: 0 (DME) lancets [Accu-Chek Multiclix Lancet] misc See Dose Instructions .ROUTE .MEDSUPPLY Qty: 50 RF: 0 (DME) Accu-Chek Compact Plus Test strip See Dose Instructions .ROUTE .MEDSUPPLY Qty: 51 RF: 0 Lantus Solostar U-100 Insulin 100 unit/mL (3 mL) Insulin Pen 33 unit SUBCUT DAILY RF: 0 acetaminophen 500 mg tablet 1,000 mg PO Q8H PRN (Reason: pain) Qty: 60 RF: 3 ibuprofen 600 mg tablet 600 mg PO TID PRNQty: 60 RF: 3 metformin [Glucophage] 1,000 MG tablet 1,000 mg PO BID RF: 0 fenofibrate 120 mg Tablet 145 mg PO DAILY RF: 0 buprenorphine-naloxone [Suboxone] 2-0.5 mg Film sublingual DAILY RF: 0 buprenorphine-naloxone [Suboxone] 12-3 mg Film 1 film sublingual DAILY RF: 0 Discharge Instructions Instructions: Foot Fracture in Adults (ED) Additional Instructions: Rest, ice, and elevate the affected area as much as possible. Alternate tylenol and motrin as needed and directed for pain. Call the orthopedist today to schedule a follow-up appointment for reevaluation in the next 2 weeks. Return to the emergency department if you develop any worsening or new concerning symptoms. Stand Alone Forms: Work Release Referrals: Luis Aquino MD [ [facility] STAFF PHYSICIAN] - Discharge Data Discharge Physician: Maria A Reyes Medical Decision Making 44-year-old male presents with left ankle and foot injury after inversion injury 5 days ago. Tenderness palpation and ecchymosis noted to left lateral malleolus and left fifth metatarsal. Neurovascular intact. No open wounds or deformity noted. Referred for x-rays which note a possible avulsion fracture lateral distal calcaneus. This was reviewed with orthopedics who agrees that this is likely an avulsion fracture. Recommends walking boot and follow-up with orthopedics in 2 weeks. Patient advised in the importance of RICE. Patient placed on orthopedic follow-up list. Usual and customary return precautions given prior to discharge. Medical Records Medical records reviewed: Yes I reviewed the patient's medical records. Imaging Data Radiologic Study: Radiologist's impression: XR ANKLE LT COMPLETE and XR foot LT complete CLINICAL HISTORY: r/o acute fracture TECHNIQUE: 2D digital imaging was performed. COMPARISON: No previous for comparison. FINDINGS: BONES: There is a tiny osseous fragment lateral to the distal calcaneus. This may represent a small avulsed fracture fragment. No bony destructive lesion is seen. A small plantar calcaneal spur. JOINTS:The ankle mortise is normally aligned. SOFT TISSUE: Normal. IMPRESSION: Tiny osseous fragment lateral to the distal calcaneus. This may represent a small avulsed fracture fragment. Please correlate with patient's site of pain. HPI General Mode of arrival: ambulatory . Date/Time Provider Initiated Documentation: 08/28/19 09:25 . Limitations to Documentation: no limitations . Information obtained by: patient . HPI Narrative: Patient is a 44-year-old male presents with left ankle and foot pain for the past 5 days after twisting an inversion injury while walking. Patient states he was walking on the deck of his house when he tripped on an extension cord and inverted his left ankle and foot. He has been having pain with weightbearing and walking. Related Data Home Medications Medication Instructions Recorded Confirmed levalbuterol tartrate [Xopenex HFA] 2 puff INHALATION Q4H PRN 04/22/16 08/28/19 metformin [Glucophage] 1,000 mg PO BID 05/12/16 08/28/19 buprenorphine-naloxone [Suboxone] 1 film SUBLINGUAL DAILY 05/20/18 08/28/19 buprenorphine-naloxone [Suboxone] SUBLINGUAL DAILY 05/20/18 04/01/19 fenofibrate 145 mg PO DAILY 05/20/18 08/28/19 Accu-Chek Compact Plus Test #51 each 05/22/18 04/01/19 lancets [Accu-Chek Multiclix #50 each 05/22/18 04/01/19 Lancet] lisinopril 20 mg PO DAILY #30 tab 05/22/18 08/28/19 Lantus Solostar U-100 Insulin 33 unit SUBCUT DAILY 12/21/18 08/28/19 acetaminophen 1,000 mg PO Q8H PRN #60 tab 12/25/18 08/28/19 ibuprofen 600 mg PO TID PRN #60 tab 12/25/18 08/28/19 glipizide 5 mg tablet 5 mg PO DAILY 07/29/19 08/28/19 Previous Rx's Medication Instructions Recorded Accu-Chek Compact Plus Test #51 each 05/22/18 lancets [Accu-Chek Multiclix #50 each 05/22/18 Lancet] lisinopril 20 mg PO DAILY #30 tab 05/22/18 acetaminophen 1,000 mg PO Q8H PRN #60 tab 12/25/18 ibuprofen 600 mg PO TID PRN #60 tab 12/25/18 Allergies Allergy/AdvReac Type Severity Reaction Status Date / Time acamprosate calcium Allergy Intermediate Verified 08/28/19 09:31 [From Campral] buspirone HCl [From BuSpar] Allergy Intermediate Skin Rash Verified 08/28/19 09:31 lorazepam [From Ativan] AdvReac Severe Agitation Verified 08/28/19 09:31 doxycycline AdvReac Intermediate Nausea Verified 08/28/19 09:31 duloxetine HCl AdvReac urinary Verified 08/28/19 09:31 [From Cymbalta] retention General Stated Complaint: Orthopedic AHMET: 4 Review of Systems All systems reviewed & are unremarkable except as noted in HPI and below Constitutional Constitutional: Reports as per HPI, Denies chills and Denies fever(s) Eyes Eyes: Denies blurry vision ENT Ears, Nose, Mouth, and Throat: Denies dizziness, Denies sore throat and Denies throat swelling Cardiovascular Cardiovascular: Denies chest pain and Denies dyspnea Respiratory Respiratory: Denies cough and Denies dyspnea Gastrointestinal Gastrointestinal: Denies abdominal pain, Denies diarrhea and Denies vomiting Genitourinary Genitourinary: Denies hematuria and Denies dysuria Musculoskeletal Musculoskeletal: Denies back pain and Denies numbness Integumentary/Breasts Skin/Breast: Denies lesions and Denies rash Neurologic Neurologic: Denies dizziness, Denies localized weakness and Denies numbness Allergic/Immunologic Allergic/Immunologic: Denies throat swelling [facility] Medical History (Updated 08/28/19 @ 11:19 by Maria A Reyes DO) Asthma (Chronic) Depression (Chronic) Diabetes (Chronic) GERD (gastroesophageal reflux disease) (Chronic) HTN (hypertension) (Chronic) Hyperlipemia (Acute) Obstructive sleep apnea (Chronic) Pancreatitis (Chronic) Surgical History (Updated 07/29/19 @ 15:11 by ANALIA Wagner) History of arthroscopy of right shoulder (Inactive 12/25/18) with biceps tenodesis History of circumcision (Acute) History of ear surgery (Acute) Pancreatic pseudocyst (Acute) Social History Smoking/Tobacco Use Status: Current every day Tobacco Type: cigarettes Counseling given: provider counseling Alcohol Intake: former Drug use: Current Sobriety Substance use type: former substance user, opiates and painkillers Details: attends [employer] Household members: spouse Current gender identity: male Seatbelt use: always Do you feel safe at home: Yes Do you feel safe in your relationship?: Yes Exam Const General: cooperative, healthy appearing and no acute distress HENMT Head: normal to inspection Mouth: oral mucosae normal Eyes General: appearance normal, both eyes and all related structures Neck Neck: normal visual inspection Resp Effort & Inspection: normal respiratory effort and able to speak in complete sentences Cardio Rate: regular rate Skin General skin exam: no rashes or lesions noted Neuro General: patient alert, patient awake and patient oriented x3 Motor: muscle tone normal throughout Extrem Left lower extremity: ankle (Tenderness to palpation of left posterior and inferior malleolus) Details: tenderness Location: of the lateral malleolus and posteriorly and ecchymosis (Left inferior and posterior malleolus) and foot Details: tenderness Location: of the base of the 5th metatarsal, toes with normal ROM, ecchymosis (Left fifth metatarsal, left lateral dorsal foot) and vascular exam Details: dorsalis pedis pulse present and posterior tibial pulse present Psych Appearance: grossly normal Affect: normal affect Course Vital Signs Vital signs: Vital Signs Temperature 98.4 F 08/28/19 09:28 Respiratory Rate 16 08/28/19 09:28 Blood Pressure 149/87 H 08/28/19 09:28 Temperature 98.4 F 08/28/19 09:28 Temperature Source Skin 08/28/19 09:28 Respiratory Rate 16 08/28/19 09:28 Respiratory Effort Non-Labored 08/28/19 09:28 Blood Pressure 149/87 H 08/28/19 09:28 Oxygen Delivery Method Room Air 08/28/19 09:28 Oxygen Flow Rate 0 08/28/19 09:28 Pain Level 10 08/28/19 09:34
[2019-08-28] MEDS: Ibuprofen 600 MG TAB PO (10:06)
--- NOTE | 2019-08-28 10:06 | DI.RAD_ITS ---
EXAM: XR ANKLE LT COMPLETE and XR foot LT complete CLINICAL HISTORY: r/o acute fracture TECHNIQUE: 2D digital imaging was performed. COMPARISON: No previous for comparison. FINDINGS: BONES: There is a tiny osseous fragment lateral to the distal calcaneus. This may represent a small avulsed fracture fragment. No bony destructive lesion is seen. A small plantar calcaneal spur. JOINTS:The ankle mortise is normally aligned. SOFT TISSUE: Normal. IMPRESSION: Tiny osseous fragment lateral to the distal calcaneus. This may represent a small avulsed fracture f ragment. Please correlate with patient's site of pain. No other fracture or dislocation is seen in the ankle or foot. DATA REPOSITORY: RADIATION DOSE DELIVERED:
[2019-08-28 11:21] VITALS: BP 136/82; PULSE 66; RESP 16; TEMP 36.7; O2SAT 97
== END 2019-08-28 11:34 | disposition home or self-care (01) ==
PROVIDERS: Emergency Provider Physician Assistant; PCP Family Medicine
DX: S92.032A Displaced avulsion fracture of tuberosity of left calcaneus, initial encounter for closed fracture (principal); X50.9XXA Other and unspecified overexertion or strenuous movements or postures, initial encounter; M25.572 Pain in left ankle and joints of left foot; E11.9 Type 2 diabetes mellitus without complications; Z79.4 Long term (current) use of insulin; I10 Essential (primary) hypertension
CPT/HCPCS: 28400; 99283; 73610; 73630; 99282; L4361

== ENCOUNTER 2020-03-04 19:44 | Outpatient (REF) | payer OTHER, SELFPAY ==
[2020-03-04 20:49] LABS: Anion Gap 11.6 mmol/L (3-11); BUN 33 mg/dL (7-18); CO2 25.4 mmol/L (21.0-32.0); CREATININE 1.36 mg/dL (0.70-1.30); Calcium 10.2 mg/dL (8.5-10.1); Chloride 99 mmol/L (98-107); Estimated GFR 57.19 (mL/min/1.73m2); Glucose 168 mg/dL (74-106); Potassium 4.3 mmol/L (3.5-5.1); Sodium 136 mmol/L (136-145)
== END 2020-03-04 20:04 ==
LOC: NCHCN 19:44
PROVIDERS: PCP Family Medicine; Visit Provider Family Medicine
DX: E11.9 Type 2 diabetes mellitus without complications (principal)
CPT/HCPCS: 80048

== ENCOUNTER 2020-06-09 09:23 | Outpatient (CLI) | payer SELFPAY ==
[2020-06-10 12:23] LABS: COVID-19 RT-PCR UVMMC Result Negative (Negative)
== END 2020-06-09 09:24 | disposition home or self-care (01) ==
PROVIDERS: PCP Family Medicine; Visit Provider Family Medicine
DX: Z20.822 Contact with and (suspected) exposure to COVID-19 (principal)
CPT/HCPCS: U0003